=== PATIENT | female | born 1965 | race Caucasian/White ===

== ENCOUNTER 2021-01-12 16:10 | Emergency (ER) | payer BC ==
[~2021-01-12] VITALS: Ht 157.5 cm; Wt 74.8 kg
[~2021-01-12 16:10] MED LIST: Z WELLBUTRIN; Z.0.DIOVAN80 MG; Z.0.ESTRADIOL1 MG; [UNRECOGNIZED DRUG - OTHER]
[2021-01-12] MEDS ORDERED: CASIRIVIMAB/IMDEVIMAB 10 ML in SODIUM CHLORIDE 0.9% 100 ML IV ONE (16:15)
[2021-01-12] MEDS ORDERED: SODIUM CHLORIDE 0.9% 100 ML ONE (16:28)
[2021-01-12 18:30] VITALS: BP 140/83
== END 2021-01-12 19:08 | disposition home or self-care (01) ==
LOC: ER 16:20
DX: R05 Cough (principal); U07.1 COVID-19
CPT/HCPCS: 99283; J7050